=== PATIENT | male | born 1980 | race Caucasian/White ===

== ENCOUNTER 2021-05-15 12:02 | Emergency (ER) | payer OTHER ==
[~2021-05-15] VITALS: Ht 180.3 cm; Wt 90.0 kg
[~2021-05-15 12:02] MED LIST: GABAPENTIN600 MG PO
[2021-05-15 12:56] LABS: HEMATOCRIT 45.8 % (39.0-50.0); HEMOGLOBIN 14.5 g/dl (14.0-18.0); IMMATURE GRANULOCYTES 0.3 % (0.0-5.0); MEAN CELL VOLUME 88.4 fL CALC (80.0-100.0); MEAN CORPUSCULAR HGB CONC 31.7 g/dL CAL (32.0-36.0); NEUT# 4.99 thou/uL (1.82-7.42); RED BLOOD COUNT 5.18 mill/uL (4.70-6.10); RED CELL DISTRI WIDTH 13.1 % (11.5-15.5)
[2021-05-15 13:13] LABS: ALBUMIN 4.1 g/dL (3.2-5.0); ALKALINE PHOSPHATASE 114 u/l (38-126); ANION GAP 11 (6-22 (CALC)); BILIRUBIN, TOTAL 0.6 mg/dL (0.0-1.4); BUN 11 mg/dL (9-20); BUN/CREATININE RATIO 10 (12-20 (CALC)); CARBON DIOXIDE 29 mmol/l (22-30); CHLORIDE 101 mmol/l (95-108); CREATININE 1.1 mg/dL (0.7-1.3); GFR > 60 ML/MIN (>=60 (CALC)); GFR FOR AFR.AMER. > 60 ML/MIN (>=60 (CALC)); POTASSIUM 3.9 mmol/l (3.5-5.1); SGOT/AST 34 u/l (17-59); SODIUM 136 mmol/l (137-146); TOTAL PROTEIN 7.5 g/dL (6.3-8.2)
[2021-05-15 14:47] LABS: URINE BILIRUBIN - DIPSTICK NEGATIVE (NEGATIVE); URINE BLOOD DIPSTICK NEGATIVE (NEGATIVE); URINE COLOR YELLOW; URINE GLUCOSE - DIPSTICK NEGATIVE (NEGATIVE); URINE KETONE NEGATIVE (NEGATIVE); URINE LEUK ESTERASE NEGATIVE (NEGATIVE); URINE PROTEIN - DIPSTICK NEGATIVE (NEG-TRACE)
[2021-05-15 14:52] LABS: URINE NITRITE - DIPSTICK NEGATIVE (Negative)
[2021-05-15] MEDS ORDERED: GABAPENTIN400 M2 PO ×2 (15:38→15:39)
[2021-05-15 15:54] VITALS: BP 130/86
== END 2021-05-15 15:50 | disposition home or self-care (01) | DRG 101 ==
LOC: ED 12:02
PROVIDERS: Emergency Medicine
DX: G40.409 Other generalized epilepsy and epileptic syndromes, not intractable, without status epilepticus (principal); F19.10 Other psychoactive substance abuse, uncomplicated; T42.6X6A Underdosing of other antiepileptic and sedative-hypnotic drugs, initial encounter; Z91.128 Patient's intentional underdosing of medication regimen for other reason
CPT/HCPCS: J1953

== ENCOUNTER 2021-07-09 19:37 | Emergency (ER) | payer OTHER ==
[~2021-07-09] VITALS: Ht 185.4 cm; Wt 113.0 kg
[~2021-07-09 19:37] MED LIST changes: +GABAPENTIN400 M2 PO
[2021-07-09 20:07] LABS: HEMOGLOBIN 13.1 g/dl (14.0-18.0); IMMATURE GRANULOCYTES 0.6 % (0.0-5.0); MEAN CELL VOLUME 85.2 fL CALC (80.0-100.0); MEAN CORPUSCULAR HGB 28.5 pG CALC (26.0-32.0); MEAN CORPUSCULAR HGB CONC 33.4 g/dL CAL (32.0-36.0); NEUT# 4.5 thou/uL (1.82-7.42); RED BLOOD COUNT 4.6 mill/uL (4.70-6.10); RED CELL DISTRI WIDTH 13.9 % (11.5-15.5)
[2021-07-09 20:10] LABS: HEMATOCRIT 39.2 % (39.0-50.0)
[2021-07-09 20:20] LABS: ALBUMIN 4.2 g/dL (3.2-5.0); ALKALINE PHOSPHATASE 76 u/l (38-126); ANION GAP 14 (6-22 (CALC)); BUN 14 mg/dL (9-20); BUN/CREATININE RATIO 14 (12-20 (CALC)); CARBON DIOXIDE 27 mmol/l (22-30); CHLORIDE 103 mmol/l (95-108); ETHYL ALCOHOL 0 mg/dl (0-30); GFR > 60 ML/MIN (>=60 (CALC)); GFR FOR AFR.AMER. > 60 ML/MIN (>=60 (CALC)); POTASSIUM 3.4 mmol/l (3.5-5.1); SGOT/AST 26 u/l (17-59); SODIUM 141 mmol/l (137-146); TOTAL PROTEIN 6.9 g/dL (6.3-8.2)
[2021-07-09 20:21] LABS: BILIRUBIN, TOTAL 0.3 mg/dL (0.0-1.4)
[2021-07-09 21:09] VITALS: BP 110/58
[2021-07-09] MEDS ORDERED: OMEPRAZOLE20 MG PO (21:21)
[2021-07-09 21:30] VITALS: BP 110/59
[2021-07-09 22:30] VITALS: BP 98/55
[2021-07-09 22:50] LABS: URINE BILIRUBIN - DIPSTICK NEGATIVE (NEGATIVE); URINE BLOOD DIPSTICK NEGATIVE (NEGATIVE); URINE COLOR YELLOW; URINE GLUCOSE - DIPSTICK NEGATIVE (NEGATIVE); URINE KETONE NEGATIVE (NEGATIVE); URINE LEUK ESTERASE NEGATIVE (NEGATIVE); URINE PROTEIN - DIPSTICK NEGATIVE (NEG-TRACE)
[2021-07-09 22:53] LABS: URINE NITRITE - DIPSTICK NEGATIVE (Negative)
[2021-07-09 23:00] VITALS: BP 95/48
[2021-07-09] MEDS ORDERED: DILANTIN100 MG PO (23:01)
[2021-07-09 23:30] VITALS: BP 93/46
[2021-07-09 23:49] VITALS: BP 93/46
== END 2021-07-09 23:59 | DRG 101 ==
LOC: ED 19:37
PROVIDERS: Family Medicine
DX: G40.409 Other generalized epilepsy and epileptic syndromes, not intractable, without status epilepticus (principal); T42.76XA Underdosing of unspecified antiepileptic and sedative-hypnotic drugs, initial encounter; Z91.128 Patient's intentional underdosing of medication regimen for other reason
CPT/HCPCS: J2060

== ENCOUNTER 2021-07-10 12:37 | Emergency (ER) | payer OTHER ==
[2021-07-10] VITALS (17 sets, daily range): BP systolic 108–131; BP diastolic 67–82
[~2021-07-10] VITALS: Ht 185.4 cm; Wt 84.1 kg
[~2021-07-10 12:37] MED LIST changes: +DILANTIN100 MG PO; +OMEPRAZOLE20 MG PO
[2021-07-10 13:25] LABS: HEMATOCRIT 38.4 % (39.0-50.0); HEMOGLOBIN 12.6 g/dl (14.0-18.0); IMMATURE GRANULOCYTES 0.4 % (0.0-5.0); MEAN CELL VOLUME 87.1 fL CALC (80.0-100.0); MEAN CORPUSCULAR HGB 28.6 pG CALC (26.0-32.0); MEAN CORPUSCULAR HGB CONC 32.8 g/dL CAL (32.0-36.0); NEUT# 3.14 thou/uL (1.82-7.42); RED BLOOD COUNT 4.41 mill/uL (4.70-6.10); RED CELL DISTRI WIDTH 14.2 % (11.5-15.5)
[2021-07-10 13:45] LABS: ALBUMIN 3.8 g/dL (3.2-5.0); ALKALINE PHOSPHATASE 75 u/l (38-126); ANION GAP 10 (6-22 (CALC)); BILIRUBIN, TOTAL 0.4 mg/dL (0.0-1.4); BUN 11 mg/dL (9-20); BUN/CREATININE RATIO 12 (12-20 (CALC)); CARBON DIOXIDE 29 mmol/l (22-30); CHLORIDE 105 mmol/l (95-108); CREATININE 0.9 mg/dL (0.7-1.3); ETHYL ALCOHOL 0 mg/dl (0-30); GFR > 60 ML/MIN (>=60 (CALC)); GFR FOR AFR.AMER. > 60 ML/MIN (>=60 (CALC)); LIPASE 35 u/l (23-300); POTASSIUM 3.8 mmol/l (3.5-5.1); SGOT/AST 26 u/l (17-59); SODIUM 140 mmol/l (137-146); TOTAL PROTEIN 6.8 g/dL (6.3-8.2)
[2021-07-10 14:42] LABS: URINE BILIRUBIN - DIPSTICK NEGATIVE (NEGATIVE); URINE BLOOD DIPSTICK NEGATIVE (NEGATIVE); URINE COLOR YELLOW; URINE GLUCOSE - DIPSTICK NEGATIVE (NEGATIVE); URINE KETONE NEGATIVE (NEGATIVE); URINE LEUK ESTERASE NEGATIVE (NEGATIVE); URINE PH 7.5 (4.5-8.0); URINE PROTEIN - DIPSTICK NEGATIVE (NEG-TRACE); URINE UROBILINOGEN - DIPSTICK 0.2 E.U./dL (0.2)
[2021-07-10 14:53] LABS: URINE NITRITE - DIPSTICK NEGATIVE (Negative)
== END 2021-07-10 19:16 | disposition short-term general hospital (02) | DRG 101 ==
LOC: ED 12:37
DX: G40.409 Other generalized epilepsy and epileptic syndromes, not intractable, without status epilepticus (principal); F19.10 Other psychoactive substance abuse, uncomplicated; Z20.822 Contact with and (suspected) exposure to COVID-19
CPT/HCPCS: J1953; J2060

== ENCOUNTER 2024-04-21 15:26 | Emergency (ER) | payer SELFPAY ==
[2024-04-21] VITALS (7 sets, daily range): BP systolic 111–124; BP diastolic 64–84
[~2024-04-21] VITALS: Ht 185.4 cm; Wt 99.8 kg
[2024-04-21] MEDS ORDERED: SODIUM CHLORIDE 0.9% 1,000 ML IV ONE (15:40)
== END 2024-04-21 17:33 | disposition left against medical advice (07) | DRG 101 ==
LOC: ED 15:26
DX: G40.909 Epilepsy, unspecified, not intractable, without status epilepticus (principal); F31.9 Bipolar disorder, unspecified; F20.9 Schizophrenia, unspecified; Z53.29 Procedure and treatment not carried out because of patient's decision for other reasons
CPT/HCPCS: J1953

== ENCOUNTER 2024-06-09 11:54 | Emergency (ER) | payer OTHER ==
[~2024-06-09] VITALS: Ht 185.4 cm; Wt 113.0 kg
[2024-06-09] MEDS ORDERED: SODIUM CHLORIDE 0.9% 1,000 ML IV ONE (12:05)
[2024-06-09 12:45] LABS: BASO% 0.8 % (0-3); EOS% 2.2 % (0-8); HEMATOCRIT 35.3 % (39.0-50.0); MEAN CORPUSCULAR HGB 21.7 pG CALC (26.0-32.0); MEAN CORPUSCULAR HGB CONC 29.5 g/dL CAL (32.0-36.0); MONO% 8.1 % (2-13); NEUT# 4.56 thou/uL (1.82-7.42); NEUT% 70.9 % (42-76); RED BLOOD COUNT 4.8 mill/uL (4.70-6.10); RED CELL DISTRI WIDTH 16.5 % (11.5-15.5)
[2024-06-09 12:54] LABS: ALBUMIN 3.9 g/dL (3.2-5.0); BILIRUBIN, TOTAL 0.3 mg/dL (0.2-1.3); CREATININE 1.1 mg/dL (0.7-1.3); TOTAL PROTEIN 6.7 g/dL (6.3-8.2)
[2024-06-09 12:56] LABS: URINE BILIRUBIN - DIPSTICK Negative (NEGATIVE); URINE BLOOD DIPSTICK Negative (NEGATIVE); URINE GLUCOSE - DIPSTICK Negative (NEGATIVE); URINE KETONE Negative (NEGATIVE); URINE LEUK ESTERASE Negative (NEGATIVE); URINE NITRITE - DIPSTICK Negative (Negative); URINE PROTEIN - DIPSTICK Negative (NEG-TRACE); URINE SPECIFIC GRAVITY 1.025
[2024-06-09 12:57] LABS: POTASSIUM 3.9 mmol/l (3.5-5.1)
[2024-06-09 13:01] LABS: URINE COLOR Yellow
[2024-06-09 13:05] LABS: HEMOGLOBIN 10.4 g/dl (14.0-18.0); MEAN CELL VOLUME 73.5 fL CALC (80.0-100.0)
[2024-06-09 13:59] VITALS: BP 144/83
[2024-06-10] MEDS ORDERED: KEPPRA500 M2 PO (16:05)
== END 2024-06-09 14:05 | disposition home or self-care (01) | DRG 897 ==
LOC: ED 11:54
PROVIDERS: Family Medicine
DX: F15.10 Other stimulant abuse, uncomplicated (principal); F16.10 Hallucinogen abuse, uncomplicated; G40.909 Epilepsy, unspecified, not intractable, without status epilepticus

== ENCOUNTER 2024-06-10 12:26 | Emergency (ER) | payer OTHER ==
[~2024-06-10] VITALS: Ht 185.4 cm; Wt 112.0 kg
[2024-06-10] VITALS (15 sets, daily range): BP systolic 119–144; BP diastolic 74–94
[2024-06-10 13:08] LABS: EOS% 2.4 % (0-8); HEMATOCRIT 38.1 % (39.0-50.0); HEMOGLOBIN 11.4 g/dl (14.0-18.0); IMMATURE GRANULOCYTES 0.2 % (0.0-5.0); LYMPH% 18.3 % (15-41); MEAN CELL VOLUME 73.1 fL CALC (80.0-100.0); MEAN CORPUSCULAR HGB 21.9 pG CALC (26.0-32.0); MEAN CORPUSCULAR HGB CONC 29.9 g/dL CAL (32.0-36.0); MONO% 5.9 % (2-13); NEUT# 4.13 thou/uL (1.82-7.42); NEUT% 72.2 % (42-76); RED BLOOD COUNT 5.21 mill/uL (4.70-6.10); RED CELL DISTRI WIDTH 16.8 % (11.5-15.5)
[2024-06-10 13:16] LABS: ALBUMIN 4.1 g/dL (3.2-5.0); BILIRUBIN, TOTAL 0.6 mg/dL (0.2-1.3); CREATININE 1.1 mg/dL (0.7-1.3); POTASSIUM 4.1 mmol/l (3.5-5.1)
[2024-06-10] MEDS ORDERED: MIDAZOLAM HCL 2 MG/2 ML VIAL IV ONE (13:50)
[2024-06-10] MEDS ORDERED: KEPPRA500 M2 PO (16:05)
== END 2024-06-10 16:39 | disposition home or self-care (01) | DRG 101 ==
LOC: ED 12:26
PROVIDERS: Family Medicine
DX: G40.909 Epilepsy, unspecified, not intractable, without status epilepticus (principal)
CPT/HCPCS: J1953; Q9967

== ENCOUNTER 2024-06-11 12:13 | Emergency (ER) | payer OTHER ==
[~2024-06-11] VITALS: Ht 185.4 cm; Wt 81.0 kg
[2024-06-11] VITALS (48 sets, daily range): BP systolic 115–190; BP diastolic 76–122
[~2024-06-11 12:13] MED LIST changes: +KEPPRA500 M2 PO
[2024-06-11] MEDS ORDERED: ETOMIDATE 20 MG/10 ML SDV IV ONE (12:20)
[2024-06-11] MEDS ORDERED: MIDAZOLAM HCL 2 MG/2 ML VIAL IV ONE (12:20)
[2024-06-11] MEDS ORDERED: PHENYTOIN SODIUM 250 MG/5 ML VIAL IV ONE (12:20)
[2024-06-11] MEDS ORDERED: ROCURONIUM BROMIDE 10 MG/ML 5ML VIAL IV ONE ×2 (12:20→14:20)
[2024-06-11] MEDS ORDERED: SODIUM CHLORIDE 0.9% 1,000 ML IV ONE (12:20)
[2024-06-11] MEDS ORDERED: PROPOFOL 100 ML IV ONE ×4 (12:25→16:50)
[2024-06-11] MEDS ORDERED: SODIUM CHLORIDE 0.9% IV ONE (12:40)
[2024-06-11] MEDS ORDERED: PHENYTOIN SODIUM IV ONE (12:40)
[2024-06-11 13:02] LABS: EOS% 2.4 % (0-8); HEMATOCRIT 42.2 % (39.0-50.0); HEMOGLOBIN 12.2 g/dl (14.0-18.0); IMMATURE GRANULOCYTES 0.2 % (0.0-5.0); LYMPH% 22.5 % (15-41); MEAN CELL VOLUME 73.9 fL CALC (80.0-100.0); MEAN CORPUSCULAR HGB 21.4 pG CALC (26.0-32.0); MEAN CORPUSCULAR HGB CONC 28.9 g/dL CAL (32.0-36.0); MONO% 7.2 % (2-13); NEUT# 4.19 thou/uL (1.82-7.42); NEUT% 66.7 % (42-76); RED BLOOD COUNT 5.71 mill/uL (4.70-6.10); RED CELL DISTRI WIDTH 16.8 % (11.5-15.5)
[2024-06-11 13:11] LABS: ALBUMIN 4.3 g/dL (3.2-5.0); ALKALINE PHOSPHATASE 124 u/l (38-126); ANION GAP 14 (6-22 (CALC)); BILIRUBIN, TOTAL 0.8 mg/dL (0.2-1.3); BUN 15 mg/dL (9-20); BUN/CREATININE RATIO 14 (12-20 (CALC)); CARBON DIOXIDE 28 mmol/l (22-30); CHLORIDE 103 mmol/l (95-108); ESTIMATED GFR 95 ML/MIN (>=90 (CALC)); POTASSIUM 4.1 mmol/l (3.5-5.1); SGOT/AST 38 u/l (17-59); SODIUM 140 mmol/l (137-146); TOTAL PROTEIN 7.5 g/dL (6.3-8.2)
== END 2024-06-11 17:15 | disposition short-term general hospital (02) | DRG 101 ==
LOC: ED 12:13
PROVIDERS: Family Medicine
PROC: 02HV33Z Insertion of Infusion Device into Superior Vena Cava, Percutaneous Approach (ICD-10-PCS; principal; 2024-06-11)
PROC: 0BH17EZ Insertion of Endotracheal Airway into Trachea, Via Natural or Artificial Opening (ICD-10-PCS; 2024-06-11)
PROC: 5A1935Z Respiratory Ventilation, Less than 24 Consecutive Hours (ICD-10-PCS; 2024-06-11)
DX: G40.901 Epilepsy, unspecified, not intractable, with status epilepticus (principal)
CPT/HCPCS: J1165; J2704

== ENCOUNTER 2024-06-18 17:49 | Emergency (ER) | payer OTHER ==
[2024-06-18] VITALS (18 sets, daily range): BP systolic 105–135; BP diastolic 70–84
[~2024-06-18] VITALS: Ht 185.4 cm; Wt 108.8 kg
[2024-06-18 18:21] LABS: BASO% 0.8 % (0-3); EOS% 2.7 % (0-8); HEMATOCRIT 40.9 % (39.0-50.0); HEMOGLOBIN 11.7 g/dl (14.0-18.0); IMMATURE GRANULOCYTES 3.2 % (0.0-5.0); LYMPH% 23.9 % (15-41); MEAN CELL VOLUME 75.6 fL CALC (80.0-100.0); MEAN CORPUSCULAR HGB 21.6 pG CALC (26.0-32.0); MEAN CORPUSCULAR HGB CONC 28.6 g/dL CAL (32.0-36.0); MONO% 8.6 % (2-13); NEUT# 4.05 thou/uL (1.82-7.42); NEUT% 60.8 % (42-76); RED BLOOD COUNT 5.41 mill/uL (4.70-6.10); RED CELL DISTRI WIDTH 16.9 % (11.5-15.5)
[2024-06-18 18:35] LABS: ALBUMIN 4.1 g/dL (3.2-5.0); BILIRUBIN, TOTAL 0.5 mg/dL (0.2-1.3); CREATININE 1.1 mg/dL (0.7-1.3); POTASSIUM 4.4 mmol/l (3.5-5.1); TOTAL PROTEIN 7.6 g/dL (6.3-8.2)
[2024-06-18 18:55] LABS: URINE BILIRUBIN - DIPSTICK Negative (NEGATIVE); URINE BLOOD DIPSTICK Negative (NEGATIVE); URINE CLARITY Cloudy; URINE GLUCOSE - DIPSTICK Negative (NEGATIVE); URINE KETONE Negative (NEGATIVE); URINE LEUK ESTERASE Negative (Negative); URINE NITRITE - DIPSTICK Negative (Negative); URINE PROTEIN - DIPSTICK Negative (NEG-TRACE); URINE SPECIFIC GRAVITY 1.025; URINE UROBILINOGEN - DIPSTICK 0.2 E.U./dL (0.2)
[2024-06-18 18:56] LABS: URINE COLOR Yellow
[2024-06-18] MEDS ORDERED: DEPAKOTE500 MG PO (21:25)
[2024-06-18] MEDS ORDERED: VALPROIC ACID 250 MG/CAP PO ONE (21:30)
== END 2024-06-18 21:42 | disposition home or self-care (01) | DRG 101 ==
LOC: ED 17:49
PROVIDERS: Family Medicine
DX: G40.909 Epilepsy, unspecified, not intractable, without status epilepticus (principal)

== ENCOUNTER 2024-06-24 17:30 | Emergency (ER) | payer OTHER ==
[2024-06-24] VITALS (9 sets, daily range): BP systolic 125–148; BP diastolic 75–96
[~2024-06-24] VITALS: Ht 185.4 cm; Wt 80.0 kg
[~2024-06-24 17:30] MED LIST changes: +DEPAKOTE500 MG PO; +ETOMIDATE 20 MG/10 ML SDV IV ONE
[2024-06-24] MEDS ORDERED: SODIUM CHLORIDE 0.9% 1,000 ML IV ONE (17:45)
[2024-06-24] MEDS ORDERED: MIDAZOLAM HCL 2 MG/2 ML VIAL ONE (17:53)
[2024-06-24 18:08] LABS: BASO% 1.1 % (0-3); EOS% 2.9 % (0-8); HEMATOCRIT 37.6 % (39.0-50.0); IMMATURE GRANULOCYTES 0.6 % (0.0-5.0); LYMPH% 24.3 % (15-41); MEAN CELL VOLUME 76.1 fL CALC (80.0-100.0); MEAN CORPUSCULAR HGB 22.3 pG CALC (26.0-32.0); MEAN CORPUSCULAR HGB CONC 29.3 g/dL CAL (32.0-36.0); NEUT# 4.36 thou/uL (1.82-7.42); NEUT% 66.1 % (42-76); RED BLOOD COUNT 4.94 mill/uL (4.70-6.10); RED CELL DISTRI WIDTH 18.5 % (11.5-15.5)
[2024-06-24 18:18] LABS: ALBUMIN 3.9 g/dL (3.2-5.0); ALKALINE PHOSPHATASE 82 u/l (38-126); ANION GAP 11 (6-22 (CALC)); BILIRUBIN, TOTAL 0.4 mg/dL (0.2-1.3); BUN 18 mg/dL (9-20); BUN/CREATININE RATIO 15 (12-20 (CALC)); CARBON DIOXIDE 28 mmol/l (22-30); CHLORIDE 104 mmol/l (95-108); CREATININE 1.2 mg/dL (0.7-1.3); ESTIMATED GFR 76 ML/MIN (>=90 (CALC)); LIPASE 55 u/l (23-300); POTASSIUM 3.9 mmol/l (3.5-5.1); SGOT/AST 38 u/l (17-59); SODIUM 140 mmol/l (137-146); TOTAL PROTEIN 6.9 g/dL (6.3-8.2)
[2024-06-24] MEDS ORDERED: PROPOFOL 100 ML IV ONE (18:25)
[2024-06-24] MEDS ORDERED: ONDANSETRON HCl 4 MG/2 ML SDV ONE (18:34)
[2024-06-24] MEDS ORDERED: [UNRECOGNIZED DRUG - OTHER] TOP (18:47)
[2024-06-24] MEDS ORDERED: OMEPRAZOLE DR40 MG PO (18:49)
[2024-06-24] MEDS ORDERED: OLANZAPINE15 MG PO (18:49)
[2024-06-24] MEDS ORDERED: SUCCINYLCHOLINE CHLORIDE 20 MG/ML 10ML VIAL IV ONE (20:00)
[2024-06-24] MEDS ORDERED: PHENYTOIN SODIUM 250 MG/5 ML VIAL IV ONE (20:45)
--- NOTE | 2024-06-24 21:16 | NUR ---
[address] CAGE WITH NO COMPLICATION. RN AND MD BEDSIDE. PT FOLLOWED COMMANDS AND MET PARAMETERS FOR EXTUBATION. CUFF DEFLATED, LEAK HEARD, ETT WITHDRAWN. GOOD COUGH. PT VOCALIZED NAME. NO STRIDOR NOTED. VSS BBS NAD.
== END 2024-06-24 22:40 | disposition short-term general hospital (02) | DRG 101 ==
LOC: ED 17:30
PROVIDERS: Emergency Medicine
PROC: 0BH17EZ Insertion of Endotracheal Airway into Trachea, Via Natural or Artificial Opening (ICD-10-PCS; principal; 2024-06-24)
PROC: 5A1935Z Respiratory Ventilation, Less than 24 Consecutive Hours (ICD-10-PCS; 2024-06-24)
DX: G40.409 Other generalized epilepsy and epileptic syndromes, not intractable, without status epilepticus (principal); R45.851 Suicidal ideations; Z88.8 Allergy status to other drugs, medicaments and biological substances
CPT/HCPCS: J1165; J2405; J2704

== ENCOUNTER 2024-07-10 00:55 | Emergency (ER) | payer OTHER ==
[~2024-07-10] VITALS: Ht 185.4 cm; Wt 83.0 kg
[~2024-07-10 00:55] MED LIST changes: -ETOMIDATE 20 MG/10 ML SDV IV ONE; +OLANZAPINE15 MG PO; +OMEPRAZOLE DR40 MG PO; +[UNRECOGNIZED DRUG - OTHER] TOP
[2024-07-10] MEDS ORDERED: HALOPERIDOL LACTATE 5 MG/ML SDV IV ONE (01:00)
[2024-07-10] MEDS ORDERED: LORazepam 2 MG/ML IV ONE (01:05)
[2024-07-10] MEDS ORDERED: SODIUM CHLORIDE 0.9% 1,000 ML IV ONE ×2 (01:05)
[2024-07-10 01:27] LABS: BASO% 0.5 % (0-3); HEMATOCRIT 34.8 % (39.0-50.0); HEMOGLOBIN 10.7 g/dl (14.0-18.0); IMMATURE GRANULOCYTES 0.2 % (0.0-5.0); LYMPH% 4.4 % (15-41); MEAN CORPUSCULAR HGB 22.8 pG CALC (26.0-32.0); MEAN CORPUSCULAR HGB CONC 30.7 g/dL CAL (32.0-36.0); MONO% 6.9 % (2-13); NEUT# 13.05 thou/uL (1.82-7.42); RED BLOOD COUNT 4.7 mill/uL (4.70-6.10); RED CELL DISTRI WIDTH 20.4 % (11.5-15.5)
[2024-07-10 01:35] LABS: ALBUMIN 4.6 g/dL (3.2-5.0); CHLORIDE 112 mmol/l (95-108); CREATININE 1.6 mg/dL (0.7-1.3); ESTIMATED GFR 54 ML/MIN (>=90 (CALC)); POTASSIUM 4.4 mmol/l (3.5-5.1); SODIUM 144 mmol/l (137-146); TOTAL PROTEIN 7.9 g/dL (6.3-8.2)
[2024-07-10 01:36] LABS: ALKALINE PHOSPHATASE 127 u/l (38-126); ANION GAP 15 (6-22 (CALC)); BILIRUBIN, TOTAL 1.4 mg/dL (0.2-1.3); BUN 40 mg/dL (9-20); BUN/CREATININE RATIO 25 (12-20 (CALC)); CARBON DIOXIDE 21 mmol/l (22-30); ETHYL ALCOHOL < 10 mg/dl (0-30); SGOT/AST 138 u/l (17-59)
[2024-07-10 03:00] VITALS: BP 126/90
== END 2024-07-10 03:00 | DRG 897 ==
LOC: ED 00:55
PROVIDERS: Family Medicine
DX: F19.151 Other psychoactive substance abuse with psychoactive substance-induced psychotic disorder with hallucinations (principal); G40.909 Epilepsy, unspecified, not intractable, without status epilepticus
CPT/HCPCS: J1630; J2060